=== PATIENT | female | born 1975 | race Two or more races ===

== ENCOUNTER 2017-10-06 09:55 | Outpatient (CLI) | payer OTHER ==
[2017-10-06 10:43] LABS: BASOPHILS % 0.3 (0.0-1.5); EOSINOPHILS % 2.1 % (0.0-6.8); MEAN CORPUSCULAR HEMOGLOBIN 30.6 pg (28.0-34.0); MEAN CORPUSCULAR VOLUME 91.8 fl (80.0-100.0); MONOCYTES % 5.5 % (0.0-11.0); NEUTROPHILS # 2.4 # k/uL (1.4-7.7)
[2017-10-06 10:55] LABS: eGFR (African) > 60; eGFR (Non-African) > 60
== END 2017-10-06 12:43 ==
LOC: LAB 09:55
PROVIDERS: ATTEND Nurse Practitioner Family
DX: R68.89 Other general symptoms and signs (principal)
CPT/HCPCS: 36415; 80053; 84439; 84443; 84481; 85025